=== PATIENT | female | born 1990 | race Hispanic/Latino ===

== ENCOUNTER 2022-09-24 21:56 | Emergency (ER) | payer BC, MEDICAID ==
[~2022-09-24] VITALS: Ht 152.4 cm; Wt 86.2 kg
[2022-09-24] MEDS ORDERED: ONDANSETRON 4MG INJ IVP ONE (23:30)
[2022-09-24] MEDS ORDERED: LACTATED RINGERS 1000ML 1,000 ML IV ONE (23:30)
[2022-09-24] MEDS ORDERED: FAMOTIDINE 20MG TAB PO ONE (23:30)
[2022-09-24] MEDS ORDERED: MORPHINE 2 MG SYG IVP ONE (23:30)
[2022-09-24 23:41] VITALS: BP 121/78
[2022-09-25 00:36] LABS: BASOPHILS % (AUTO) 0.6 % (0.0-5.0); EOSINOPHILS % (AUTO) 2.3 % (0.0-8.0); HEMATOCRIT 38.5 % (36-48); LYMPHOCYTES % (AUTO) 35.1 % (21.0-51.0); MEAN CORPUSCULAR HEMOGLOBIN 29.9 pg (27.0-33.0); MEAN CORPUSCULAR HGB CONC 33.5 g/dL (32.0-36.0); MEAN CORPUSCULAR VOLUME 89.3 fL (79-99); MONOCYTES % (AUTO) 6.4 % (3.0-13.0); NEUTROPHILS % (AUTO) 55.4 % (40.0-77.0); PLATELET COUNT (AUTO) 272 K/uL (130-400); RED BLOOD CELL COUNT(AUTO) 4.31 MIL/uL (4.00-5.50); RED CELL DISTRIBUTION WIDTH 12.5 % (11.0-15.5); WHITE BLOOD COUNT (AUTO) 8.9 K/uL (4.8-10.8)
[2022-09-25 00:46] LABS: CREATININE 0.8 mg/dL (0.5-1.5); POTASSIUM 4.1 mmol/L (3.5-5.1)
[2022-09-25 00:57] LABS: ALBUMIN 3.6 g/dL (3.5-5.0); TOTAL PROTEIN, SERUM 7.7 g/dL (6.0-8.3)
[2022-09-25 01:28] LABS: APPEARANCE,URINE CLEAR (CLEAR); BILIRUBIN,URINE NEGATIVE (NEGATIVE); COLOR,URINE LIGHT-YELLOW (YELLOW); GLUCOSE, URINE (UA) NEGATIVE (NEGATIVE); KETONES,URINE NEGATIVE (NEGATIVE); LEUKOCYTE ESTERASE ,URINE 25 Leu/uL (NEGATIVE); NITRATE,URINE NEGATIVE (NEGATIVE); PROTEIN,URINE NEGATIVE (NEGATIVE)
[2022-09-25] MEDS ORDERED: KETOROLAC 30MG VIAL (30MG/ML) ONE (01:29)
[2022-09-25] MEDS ORDERED: KETOROLAC 30MG VIAL (30MG/ML) IVP ONE (01:30)
[2022-09-25 01:34] LABS: MUCUS,URINE RARE LPF (None Seen); SQUAMOUS EPITHELIAL CELL,UR RARE /HPF (0-2)
[2022-09-25] MEDS ORDERED: CEPH500B PO (02:41)
[2022-09-25] MEDS ORDERED: CEFTRIAXONE 2GM VIAL IVPB ONE (03:00)
== END 2022-09-25 03:17 | disposition home or self-care (01) ==
LOC: EDH 21:56
DX: Z90.49 Acquired absence of other specified parts of digestive tract (principal); N20.0 Calculus of kidney
CPT/HCPCS: 99285; 76705; 96375 ×2; 80053; 84702; 83690; 85025; 81001; 36415; 96365; J7120; J2270; J0696; J2405; J1885